=== PATIENT | male | born 1935 | race Caucasian/White ===

== ENCOUNTER → 2017-07-11 | Outpatient (CLI) | payer OTHER, BC ==
[~2017-07-11] MED LIST: ACET-1311 PO; ASPI325T45 PO; CIME800T4 PO; IBUP-103 PO; MULT-506 PO; POLY335025 PO; PROP20TA67 PO; SULF800T23 PO; ZOLP10TA6 PO
[2017-07-11 17:46] LABS: BASO % 0.5 %; BASO ABS # 0.04 K/uL (0-0.2); COMPLETE YES; EOS % 2.7 %; HEMATOCRIT 35.8 % (42-52); IG% 0.1 %; LYMPH % 26.7 %; LYMPH ABS # 2.04 K/uL (1.2-3.4); MEAN CELL VOLUME 95.5 fL (80-100); MEAN CORPUSCULAR HEMOGLOBIN 30.1 pg (25-34); MEAN CORPUSCULAR HGB CONC 31.6 g/dl (32-36); MONO % 9.8 %; NEUT % 60.2 %; PLATELET COUNT 215 K/uL (130-400); RED BLOOD COUNT 3.75 M/uL (4.7-6.1); WHITE BLOOD COUNT 7.64 K/uL (4.8-10.8)
[2017-07-11 18:17] LABS: ALT/SGPT 27 U/L (12-78); AST/SGOT 41 U/L (15-37); BLOOD UREA NITROGEN 31 mg/dl (7-18); BUN/CREATININE RATIO 21.8 (10-20); CALCIUM 9.3 mg/dl (8.5-10.1); CARBON DIOXIDE 28 mmol/L (21-32); CHLORIDE 104 mmol/L (98-107); CHOLESTEROL 179 mg/dl (0-200); GLUCOSE 91 mg/dl (70-99); POTASSIUM 4.6 mmol/L (3.5-5.1); SODIUM 138 mmol/L (136-145); TRIGLYCERIDES 141 mg/dl (0-150); VERY LOW DENSITY LIPOPROT CALC 28 mg/dl
[2017-07-11 18:27] LABS: ALB/GLOB RATIO 1.2 (0.9-2); ALKALINE PHOSPHATASE 76 U/L (45-117); CHOLESTEROL/HDL RATIO 2.5; HDL CHOLESTEROL 73 mg/dl; LDL CHOLESTEROL CALCULATED 78 mg/dl
[2017-07-12 06:59] LABS: ESTIMATED AVERAGE GLUCOSE 103 mg/dl; HA1C FLAG Normal (Normal)
--- NOTE | 2017-07-20 17:39 | CODING QUERY MEDICAL NECESSITY ---
SUPPORTING DIAGNOSIS NEEDED A supporting diagnosis is required for the test/procedure performed on this patient in order for us to be reimbursed by the patient's insurance. Please provide a supporting diagnosis for the following test/procedure listed below next to the test name along with your signature. *If there is no additional diagnosis for this patient that would support the following test/procedure please document that below next to the test/procedure. Test(s)/Procedure(s) that require a supporting diagnosis: * HEMOGLOBIN A1C DIAGNOSIS: * VITAMIN D, 25-HYDROXY DIAGNOSIS: * VITAMIN B12 DIAGNOSIS: Provider Signature: Date: Thank you Arlet Marshall [employer] Once completed, please kindly fax back to [phone] For questions please call [phone]
== END | disposition home or self-care (01) ==
LOC: C.LABPVFM 11:11
PROVIDERS: ATTEND Neuromusculoskeletal Medicine & OMM
DX: Z00.00 Encounter for general adult medical examination without abnormal findings (principal); R29.898 Other symptoms and signs involving the musculoskeletal system; D64.9 Anemia, unspecified

== ENCOUNTER → 2018-06-19 | Outpatient (CLI) | payer OTHER, BC ==
[~2018-06-19] MED LIST changes: -ACET-1311 PO; -ASPI325T45 PO; +ASPI81TA28 PO; -CIME800T4 PO; +CIMETIDINE 200 MG PO; +FINA5TAB4 PO; -IBUP-103 PO; -MULT-506 PO; -POLY335025 PO; -PROP20TA67 PO; +SACC250C3 PO; -SULF800T23 PO; -ZOLP10TA6 PO
== END | disposition home or self-care (01) ==
LOC: C.LABPVFM 10:46
PROVIDERS: ATTEND Nurse Practitioner Family
DX: Z00.00 Encounter for general adult medical examination without abnormal findings (principal)